=== PATIENT | female | born 1945 | race Caucasian/White ===

== ENCOUNTER 2018-07-01 07:22 | Outpatient (CLI) | payer MEDICARE | END 2018-07-01 07:23 | disposition home or self-care (01) | LOC: C.PAT 07:22 | DX: D17.9 Benign lipomatous neoplasm, unspecified (principal) ==

== ENCOUNTER 2018-07-07 08:23 | Day surgery (SDC) | payer MEDICARE ==
[2018-07-01 07:43] VITALS: BMI 25.7
[2018-07-07] MEDS ORDERED: ceFAZolin 1 gm in NS 1 GM/100 ML BAG IVPB ONE ×2 (10:16→10:52)
[2018-07-07] MEDS ORDERED: Midazolam 2 MG/2 ML VIAL ONE (10:48)
[2018-07-07] MEDS ORDERED: Propofol 10 mg/ml Inj (20 ML) ONE (10:49)
[2018-07-07] MEDS: Lidocaine/Epinephrine 1% 1:100000 10 ML IJ ONE ×2 (11:01→11:07)
[2018-07-07] MEDS: Bupivacaine 0.25% 20 ML INJ IJ ONE ×2 (11:01→11:07)
[2018-07-07] MEDS ORDERED: HYDROmorphone 0.5 mg/0.5 ml ISec IVP PRN (11:52)
--- NOTE | 2018-07-07 11:55 | PCM.SURG1 ---
Surgeon's Initial Post Op Note - Surgeon's Notes Surgeon: Dr. Edwards Buyer Liaison: Dr. Benavidez Type of Anesthesia: IV Sedation, Local Pre-Operative Diagnosis: soft tissue mass of posterior neck Operative Findings: see operative note Post-Operative Diagnosis: same Operation Performed: excision of posterior neck lipoma Specimen/Specimens Removed: lipoma Estimated Blood Loss: EBL {In ML}: 10 Blood Products Given: N/A Drains Used: No Drains Post-Op Condition: Good Date of Surgery/Procedure: 07/07/18 Time of Surgery/Procedure: 11:55
[2018-07-07 12:11] VITALS: O2SAT 100
[2018-07-07 13:02] VITALS: BP 147/86; PULSE 83; RESP 18; TEMP 97.2
--- NOTE | 2018-07-07 22:18 | OP ---
PROCEDURE DATE: 07/07/2018 PREOPERATIVE DIAGNOSIS: Lipoma of the posterior neck. POSTOPERATIVE DIAGNOSIS: Lipoma of the posterior neck. PROCEDURE DONE: 1. Excision of the lipoma of the posterior neck. 2. Layered closure of the wound SURGEON: Kirit Edwards MD [employer] SUPERVISOR: Nate. ANESTHESIA: Local anesthesia plus sedation. ESTIMATED BLOOD LOSS: Around 10 mL. DRAINS: None. PATHOLOGY: The lipoma was sent to the pathology. COMPLICATIONS: None. INTRAOPERATIVE FINDINGS: The patient had approximately 4 x 3 cm large lipoma of the posterior neck, and on intraoperative steps, this is a 72-year-old female who was diagnosed with lipoma of the posterior neck, and the patient was consented for excision of the lipoma, brought to the OR, placed supine on operating table. DESCRIPTION OF PROCEDURE: After induction of the sedation, the posterior neck was prepped and draped in usual sterile fashion. Local anesthesia was injected. First incision was made, upper and lower flap was created. The dissection was carried down to identify the lipoma. The upper and lower flap dissection was done. Lipoma was completely excised and was sent off the table for the pathology. Wound was irrigated. Some part of the skin was also trimmed, and now the upper and lower flaps were sutured to the underlying fascia and muscles to prevent seroma and the deep subcu with 3-0 Vicryl and skin with a 4-0 Monocryl and dry sterile dressing was applied. The patient tolerated the procedure well. Count of instrument and gauze was correct. There was no apparent complication. The patient was reversed from sedation, sent to the postanesthesia care unit in stable condition. Kirit Edwards MD
== END 2018-07-07 16:03 | disposition home or self-care (01) ==
LOC: C.SDS 08:23
PROVIDERS: ATTEND Surgery Surgical Critical Care
DX: D17.0 Benign lipomatous neoplasm of skin and subcutaneous tissue of head, face and neck (principal); I10 Essential (primary) hypertension; M06.9 Rheumatoid arthritis, unspecified; M32.9 Systemic lupus erythematosus, unspecified; E78.5 Hyperlipidemia, unspecified; K21.9 Gastro-esophageal reflux disease without esophagitis; E55.9 Vitamin D deficiency, unspecified; Z86.010 Personal history of colon polyps; Z98.890 Other specified postprocedural states; Z90.710 Acquired absence of both cervix and uterus; Z79.82 Long term (current) use of aspirin; Z79.899 Other long term (current) drug therapy
CPT/HCPCS: 11424; 12042; 88304; J0690; J2250; J2704; J3010